=== PATIENT | male | born 1940 | race Caucasian/White ===

== ENCOUNTER 2019-07-28 | Emergency (ER) | payer OTHER, MEDICARE ==
[2019-07-28] MEDS ORDERED: ELIQUIS5 MG PO (16:55)
[2019-07-28] MEDS ORDERED: LYRICA25 MG PO (16:56)
[2019-07-28] MEDS ORDERED: METFORMIN500 MG PO (16:56)
[2019-07-28] MEDS ORDERED: GABAPENTIN100 MG PO ×2 (16:56)
[2019-07-28] MEDS ORDERED: SIMVASTATIN10 MG PO (16:57)
[2019-07-28] MEDS ORDERED: SOTALOL HCL80 MG PO (16:57)
[2019-07-28] MEDS ORDERED: VERAPAMIL120 M1 PO (16:58)
[2019-07-28] MEDS ORDERED: FIORICET PO (16:58)
== END 2019-07-28 16:20 | disposition home or self-care (01) | DRG 605 ==
DX: S80.02XA Contusion of left knee, initial encounter (principal); S40.012A Contusion of left shoulder, initial encounter; E11.9 Type 2 diabetes mellitus without complications; I10 Essential (primary) hypertension; I48.91 Unspecified atrial fibrillation; V53.5XXA Driver of pick-up truck or van injured in collision with car, pick-up truck or van in traffic accident, initial encounter; Z95.1 Presence of aortocoronary bypass graft; Z95.2 Presence of prosthetic heart valve; Z95.0 Presence of cardiac pacemaker